=== PATIENT | female | born 1950 | race Caucasian/White ===

== ENCOUNTER 2022-01-12 11:10 | Emergency (ER) | payer MEDICARE ==
[~2022-01-12] VITALS: Ht 165.1 cm; Wt 62.1 kg
[2022-01-12 12:45] VITALS: BP 133/66
[2022-01-12] MEDS ORDERED: CEPH500B PO (12:50)
[2022-01-12] MEDS ORDERED: CEPHALEXIN 500 MG CAPSULE ONE (12:50)
[2022-01-12] MEDS ORDERED: CEPHALEXIN 500 MG CAPSULE PO ONE (13:00)
== END 2022-01-12 12:54 | disposition home or self-care (01) ==
LOC: EDH 11:10
DX: L03.115 Cellulitis of right lower limb (principal); I10 Essential (primary) hypertension; Z98.890 Other specified postprocedural states; Z88.5 Allergy status to narcotic agent; Z88.6 Allergy status to analgesic agent; Z88.8 Allergy status to other drugs, medicaments and biological substances; Z91.040 Latex allergy status